=== PATIENT | female | born 1965 | race Caucasian/White ===

== ENCOUNTER → 2020-01-08 08:31 | Outpatient (CLI) | payer OTHER, BC, SELFPAY ==
--- NOTE | 2020-01-08 08:40 | CT_ITS ---
STUDY: CT SCAN HAND LEFT REASON FOR EXAM: Female, 54 years old. LEFT HAND CONTUSION, FALL, PAIN WRIST/PALM AREA RADIATION DOSAGE (If Supplied By Facility): CTDIvol = ( 24.58 ) mGy, DLP = ( 683.53 ) mGycm. Individualized dose optimization techniques were used for this CT.? TECHNIQUE: Multiple axial tomographic images were obtained without intravenous contrast administration. Coronal and sagittal reconstruction was obtained as well. COMPARISON: None. FINDINGS: There is evidence of a soft tissue swelling. The carpal bones are unremarkable. The distal portion of the radius and ulna are unremarkable as well. The metacarpal bones as well as the phalanges are unremarkable. CT/Extremity Upper without Contra IMPRESSION: Soft tissue swelling. Electronically Signed: Patrick Barragan, at 10:16 EDT , Service support ,
== END ==
PROVIDERS: PCP Internal Medicine; Referring Provider Family Medicine; Visit Provider Family Medicine
DX: S60.222A Contusion of left hand, initial encounter (principal)
CPT/HCPCS: 73200

== ENCOUNTER 2020-05-14 17:27 | Emergency (ER) | payer OTHER, SELFPAY ==
[2020-05-14 17:28] VITALS: BP 144/76; PULSE 86; RESP 19; TEMP 36.1; O2SAT 100; BMI 21.9
[2020-05-14 17:31] VITALS: BP 144/76; PULSE 86; RESP 19; TEMP 36.1; O2SAT 100
--- NOTE | 2020-05-14 17:41 | EKG12_ITS ---
Test Reason : Blood Pressure : / mmHG Vent. Rate : 073 BPM Atrial Rate : 073 BPM P-R Int : 166 ms QRS Dur : 078 ms QT Int : 388 ms P-R-T Axes : 073 061 067 degrees QTc Int : 427 ms Normal sinus rhythm Normal ECG Confirmed by TWAN MACIAS, VERENA ([id number]), commissioning editor OSMIN SANCHEZ ([id number]) on 05/18/2020 9:50:10 AM Referred By: MALIK Confirmed By:VERENA TRENT MD
--- NOTE | 2020-05-14 17:44 | ED.VIS.GEN ---
History of Present Illness Chief Complaint: Chest Pain Narrative: Patient has had Covid for over a week, she developed some epigastric/chest pain yesterday it improved with Motrin. She has no shortness of breath, there is no pleuritic component. There is no back pain or tearing sensation. There is no lower extremity edema or calf pain. She denies any fever or chills, her Covid symptoms which include myalgias and generalized illness are somewhat improving. Past Medical History - Allergies and Home Meds Allergies/Adverse Reactions: Allergies No Known Allergies Allergy (Verified 05/14/20 17:30) Primary Care Physician: Juarez Boland MD [Primary Care Provider] - 3-5 Days Past Medical History: None Smoking Status: Never smoker Review of Systems All systems negative except as indicated General: Denies: Fever Eyes: Reports: Visual changes - bilaterally Cardiovascular: Reports: Chest pain. Denies: Palpitations, Heart racing Respiratory: Denies: Dyspnea, Cough, Sputum Gastrointestinal: Reports: - - Upper epigastric pain she tells me it is more in the chest.. Denies: Nausea, Vomiting Genitourinary: Denies: Dysuria Musculoskeletal: Reports: Myalgias. Denies: Extremity Pain Skin: Denies: Rash Neurological: Denies: Headache, Weakness Psych: Denies: Depression Endocrine: Denies: Polyuria Hematologic: Denies: Easy bruising Allergy: Denies: Uticaria Physical Exam Vital Signs/Narrative: Vital Signs Temp Pulse Resp BP Pulse Ox 05/14/20 17:31 97 F L 86 19 H 144/76 H 100 05/14/20 17:28 97 F L 86 19 H 144/76 H 100 General: Well nourished, Well developed Head: Normocephalic, Atraumatic ENT: Moist mucous membranes, No rhinorrhea Neck: Supple Cardiovascular: Regular rate, Regular rhythm Respiratory: No distress, CTA bilaterally, - - There is tenderness over the xiphoid region of her chest I cannot reproduce it. Abdomen: Soft, - - She has no abdominal pain to palpation Back: Nontender, Normal Inspection. Negative for: CVA tenderness Extremities: Nontender, No edema. Negative for: Tenderness, Calf Tenderness Skin: Negative for: Normal color, No rash Neurological: Negative for: Normal Strength, Normal Sensation Diagnostic/Tx/Re-eval Chest X-Ray - ED: 1 View, Read by ED Physician, Read by Radiologist, - - Right lower lobe infiltrate present. Normal cardiac silhouette. Interpreted by emergency doctor - Rhythm Strip Rhythm Strip: Sinus Rhythm Rate: 73 Ectopy: None - EKG Initial EKG Interpretation: - - Normal sinus rhythm with a rate of 73. Normal IL and QTc intervals. No ischemic changes. Normal EKG otherwise Interpreted by emergency doctor - Medical Decision Making Patient has an unremarkable work-up other than an infiltrate, she has a normal white count and this infiltrate is likely consistent with her Covid diagnosis. No antibiotics are warranted at this time she has no fever chills or anything that would make me think this is a superimposed infection. She appears well she is oxygenating well and I believe she will do quite well outpatient I did warn her that if she gets any worsening of her symptoms she needs to get rechecked. I encouraged her to buy a pulse oximeter. ED Disposition - Plan for ED Patient: Disposition: Home or Assisted Living Diagnosis: Pneumonia due to COVID-19 virus Instructions: Coronavirus Disease 2019 (COVID-19): Caring for Yourself or Others Referrals: Juarez Boland MD [Primary Care Provider] - 3-5 Days
--- NOTE | 2020-05-14 17:48 | RAD_ITS ---
STUDY: X-RAY CHEST REASON FOR EXAM: Female, 54 years old. CHEST PAIN STARTING YESTERDAY. TESTED POSITIVE COVID ON MONDAY. TECHNIQUE: Single frontal view of the chest. COMPARISON: None. FINDINGS: Cardiac silhouette unremarkable. Pulmonary vascularity unremarkable. Aorta unremarkable. Minimal hazy right base airspace opacities. No pleural effusions. Nodular density at the left base most likely represents a nipple shadow can be further assessed with a repeat chest radiograph with nipple markers. Upper abdomen unremarkable. Osseous structures intact. No pneumothorax. RAD/Chest 1 View (Portable) IMPRESSION: Minimal right base patchy opacity may be consistent with acute pneumonia. Electronically Signed: Chong Paulson, at 18:23 EST Tel , Service support ,
[2020-05-14 18:08] LABS: Absolute Lymphocyte Count 1.43 X10^3/uL (0.83-4.51); Absolute Neutrophil Count 3.4 X10^3/uL (2.0-7.7); Basophil# 0.03 X10^3/uL; Basophil% 0.5 % (0-1); Eosinophil# 0.05 X10^3/uL; Eosinophils% 0.9 % (0-5); Hematocrit 39.2 % (37-47); Lymphocyte # 1.43 X10^3/ul (4.0); Mean Corp Hgb Conc 30.6 g/dL (32-36); Mean Corpuscular Hgb 25.1 pg (27.0-32.0); Mean Corpuscular Volume 81.8 fL (81-99); Mean Platelet Vol. 11.6 fl (6.2-12.0); Monocyte# 0.62 X10^3/uL; Monocyte% 11.3 % (0-10); NRBC Flagged by Analyzer 0 % (0-5); Neutrophil # 3.35 X10^3/uL (2.7-7.7); Neutrophil % 61.1 % (47-70); Platelet Count 293 K/mm3 (150-450); RBC Distribution Width SD 45.2 fl (35.1-43.9); Red Blood Count 4.79 M/mm3 (4.2-5.4); White Blood Count 5.5 K/mm3 (4.4-11.0)
[2020-05-14 18:41] LABS: ALB/GLOB Ratio 1.1 RATIO (0.9-2.4); AST(SGOT) 19 U/L (15-37); Alanine Aminotransfer ALT/SGPT 28 U/L (13-56); Albumin, Serum 3.9 g/dL (3.2-5.0); Alkaline Phosphatase 52 U/L (45-117); Anion Gap 3 (5-15); BUN 13 mg/dL (7-18); BUN/Creat Ratio 15.6 RATIO (10-20); Calcium,Total 8.7 mg/dL (8.5-10.1); Chloride 106 mmol/L (98-107); Creatinine, Serum 0.83 mg/dL (0.55-1.02); EST Glomerular Filtration Rate 75 mL/min (>60); Est Glom Filt Rate - Afr Amer 91 mL/min (>60); Estimated Creatinine Clearance 59.86 ml/min; Globulin 3.6 g/dL (2.2-4.2); Glucose 91 mg/dL (74-106); Lipase 212 U/L (73-393); Protein, Total 7.5 g/dL (6.4-8.2); Sodium Level 138 mmol/L (136-145)
[2020-05-14 19:01] VITALS: BP 135/76; PULSE 66; RESP 18; O2SAT 98
== END 2020-05-14 19:04 | disposition home or self-care (01) ==
PROVIDERS: Emergency Provider Emergency Medicine; PCP Internal Medicine
DX: U07.1 COVID-19 (principal); J12.82 Pneumonia due to coronavirus disease 2019
CPT/HCPCS: 71045; 80053; 83690; 84484; 85025; 93005; 99283; A4216

== ENCOUNTER 2020-07-07 11:45 | Emergency (ER) | payer OTHER, SELFPAY ==
[2020-07-07 11:45] VITALS: BP 144/78; PULSE 71; RESP 16; TEMP 36.4; O2SAT 98; BMI 23.8
--- NOTE | 2020-07-07 11:58 | EKG12_ITS ---
Test Reason : SYNCOPE Blood Pressure : / mmHG Vent. Rate : 069 BPM Atrial Rate : 069 BPM P-R Int : 186 ms QRS Dur : 098 ms QT Int : 414 ms P-R-T Axes : 059 060 064 degrees QTc Int : 443 ms Normal sinus rhythm Normal ECG When compared with ECG of 14-MAY-2020 17:35, No significant change was found Confirmed by ANNETTE MACIAS, MILENA ([id number]), production editor OSMIN SANCHEZ ([id number]) on 07/20/2020 11:50:11 A M Referred By: LETY Confirmed By:SU BRYANT MD
--- NOTE | 2020-07-07 12:08 | ED.VIS.GEN ---
History of Present Illness Chief Complaint: Syncope Informant: Patient Onset: Today Context: Sudden Onset Timing: Intermittent Quality: Passed out Location: At work Current Severity: - - Complains of cold sensation left upper extremity Maximum Severity: Severe Worsened by: Patient amelie from sitting position was walking and passed out. Relieved by: Time Associated Symptoms: Low blood pressure and low heart rate Narrative: A 55-year-old woman with history of GERD on Nexium who presents after syncopal episode. This occurred at work. She was sitting. She got up from a sitting position and and began walking. She passed out. She did feel her vision becoming black and lightheaded. She denied nausea. Plus minus warm sensation. She states when she awoke many people her standing over her. Person at scene told her that her blood pressure and heart rate were low. Patient is on no cardiac meds or antihypertensive medication. Her only medication is Nexium. She denies black or maroon stool the past 2448 hrs. She denies history of bleeding ulcer. She denies headache. She denies visual, ocular auditory symptoms. She denies trouble with speech or swallowing. She denies chest discomfort, shortness of breath or dyspnea on exertion. She denies abdominal or back pain. She denies extremity pain. She complains of this cold sensation that is greater in the left hand compared to the entire left upper extremity. It is not in a dermatomal distribution. She also complained of tingling in her face initially. Patient denies history of syncope. She denies history of cardiac disease, hypertension or diabetes. Prior similar symptoms: No Recent Illness/Hospitalization: No - Past Medical History (1) History of gastroesophageal reflux (GERD) Status: Acute Past Medical History - Allergies and Home Meds Allergies/Adverse Reactions: Allergies No Known Allergies Allergy (Verified 07/07/20 12:18) Primary Care Physician: Juarez Boland MD [Primary Care Provider] - Prior records reviewed: No Surgical History: noncontributory Lives: Spouse/ Significant Other Smoking Status: Never smoker Alcohol: Rare Drugs: None Review of Systems General: Denies: Chills, Fever, Sweats Eyes: Reports: Visual changes - bilaterally ENT: Denies: Bilateral ear pain, Rhinorrhea, Sore throat Cardiovascular: Denies: Chest pain, Palpitations, Heart racing Respiratory: Denies: Dyspnea, Cough, Dyspnea on exertion Gastrointestinal: Denies: Abdominal pain, Nausea, Vomiting, Diarrhea, Melena, Hematochezia Genitourinary: Denies: Dysuria, Hematuria, Frequency Musculoskeletal: Denies: Back pain, Extremity Pain Skin: Denies: Rash, Wounds Neurological: Reports: Parasthesia. Denies: Headache, Weakness, Numbness Hematologic: Denies: Easy bruising, Easy bleeding Allergy: Denies: Uticaria, Swelling of the mouth Physical Exam Vital Signs/Narrative: Vital Signs Temp Pulse Resp BP Pulse Ox 07/07/20 11:45 97.5 F L 71 16 144/78 H 98 Inital Vital Signs reviewed: Yes General: Well nourished, Well developed, No Acute Distress Head: Normocephalic, Atraumatic Eyes: Perrl, EOMI. Negative for: Pale conjunctiva, Scleral icterus ENT: Moist mucous membranes, No rhinorrhea Neck: Supple, Nontender Cardiovascular: Regular rate, Regular rhythm, No murmurs, Normal S1, Normal S2 Respiratory: No distress, CTA bilaterally, Chest nontender Abdomen: Soft, Nontender, Nondistended, Normal bowel sounds, No masses Back: Nontender, Normal Inspection Extremities: Nontender, No edema, - - There is no asymmetry, swelling, discoloration, leg vein distention, palpable cords or tenderness along the distribution of the deep venous system. DP and PT pulse are palpable and symmetric. Skin: Normal color, No rash Neurological: Alert, Oriented x3, Cranial nerves II-XII grossly intact, Normal Strength, Normal Sensation, Normal DTR - There is no clonus or Babinski sign. Cerebellar testing is normal. NIH is 0 Psychological: Normal affect, Normal Mood Diagnostic/Tx/Re-eval Laboratory Results 07/07/20 07/07/20 12:10 12:10 WBC 6.2 RBC 4.16 L Hgb 10.9 L Hct 35.8 L MCV 86.1 MCH 26.2 L MCHC 30.4 L RDW Std Deviation 53.1 H RDW Coeff of Andres 16.8 H Plt Count 280 MPV 11.0 Immature Gran % (Auto) 0.200 Neut % (Auto) 64.1 Lymph % (Auto) 26.3 [place] % (Auto) 7.0 Eos % (Auto) 1.9 Baso % (Auto) 0.5 Absolute Neuts (auto) 4.0 Absolute Lymphs (auto) 1.62 Nucleated RBC % 0 Sodium 139 Potassium 3.8 Chloride 107 Carbon Dioxide 28.0 Anion Gap 4 L BUN 13 Creatinine 0.73 Estim Creat Clear Calc 67.25 Est GFR (MDRD) Af Amer 106 Est GFR (MDRD) Non-Af 87 BUN/Creatinine Ratio 17.8 Glucose 115 H Calcium 8.9 CBC is remarkable for mild anemia with normal indices. Basic metabolic panel is normal and specifically BUN to creatinine ratio. - EKG Initial EKG Interpretation: Sinus Rhythm - Normal sinus rhythm with a ventricular rate of 69. AL interval is 186 ms. QS duration 98 ms. QT duration 414 ms. [place] is normal. The EKG is normal. - Medical Decision Making None comment regarding feeling cold loss of vision/tunneling with low blood pressure and low heart rate suspect vasovagal syncopal episode. Uncertain why patient complained of tingling. As I was dictating my note I was informed by her nurse that her tingling has resolved. Basic metabolic panel was obtained to assess for electrolytes and specifically sodium, calcium and potassium as possible cause of her tingling sensation. EKG to rule out ischemic changes. CBC to assess H&H since she has history of GERD. ED Disposition - Plan for ED Patient: Disposition: Home or Assisted Living Diagnosis: Vasovagal syncopes, Anemia, unspecified, Paresthesia of left upper extremity, Facial paresthesia Instructions: ED Fainting, Vagal Reaction, ED Paraesthesias Referrals: Juarez Boland MD [Primary Care Provider] - As Needed
[2020-07-07 12:26] LABS: Absolute Lymphocyte Count 1.62 X10^3/uL (0.83-4.51); Basophil# 0.03 X10^3/uL; Basophil% 0.5 % (0-1); Eosinophil# 0.12 X10^3/uL; Eosinophils% 1.9 % (0-5); Hematocrit 35.8 % (37-47); Hemoglobin 10.9 g/dL (12.0-15.0); Lymphocyte # 1.62 X10^3/ul (4.0); Lymphocyte % 26.3 % (19-41); Mean Corp Hgb Conc 30.4 g/dL (32-36); Mean Corpuscular Hgb 26.2 pg (27.0-32.0); Mean Corpuscular Volume 86.1 fL (81-99); Monocyte# 0.43 X10^3/uL; NRBC Flagged by Analyzer 0 % (0-5); Neutrophil # 3.96 X10^3/uL (2.7-7.7); Neutrophil % 64.1 % (47-70); Platelet Count 280 K/mm3 (150-450); RBC Distribution Width CV 16.8 % (11.6-14.6); RBC Distribution Width SD 53.1 fl (35.1-43.9); Red Blood Count 4.16 M/mm3 (4.2-5.4); White Blood Count 6.2 K/mm3 (4.4-11.0)
[2020-07-07 12:29] LABS: Anion Gap 4 (5-15); BUN 13 mg/dL (7-18); BUN/Creat Ratio 17.8 RATIO (10-20); Calcium,Total 8.9 mg/dL (8.5-10.1); Chloride 107 mmol/L (98-107); Creatinine, Serum 0.73 mg/dL (0.55-1.02); EST Glomerular Filtration Rate 87 mL/min (>60); Est Glom Filt Rate - Afr Amer 106 mL/min (>60); Estimated Creatinine Clearance 67.25 ml/min; Glucose 115 mg/dL (74-106); Potassium 3.8 mmol/L (3.5-5.1); Sodium Level 139 mmol/L (136-145)
[2020-07-07 12:56] VITALS: BP 129/74; PULSE 73; RESP 20; O2SAT 100
== END 2020-07-07 12:57 | disposition home or self-care (01) ==
PROVIDERS: Emergency Provider Emergency Medicine; PCP Internal Medicine
DX: R55 Syncope and collapse (principal); D64.9 Anemia, unspecified; R20.2 Paresthesia of skin; K21.9 Gastro-esophageal reflux disease without esophagitis
CPT/HCPCS: 80048; 85025; 93005; 99285; A4216

== ENCOUNTER → 2021-04-15 13:03 | Outpatient (CLI) | payer OTHER, SELFPAY ==
[2021-04-15 13:20] LABS: Absolute Lymphocyte Count 1.58 X10^3/uL (0.83-4.51); Absolute Neutrophil Count 3.2 X10^3/uL (2.0-7.7); Basophil# 0.05 X10^3/uL; Basophil% 0.9 % (0-1); Eosinophil# 0.47 X10^3/uL; Eosinophils% 8.1 % (0-5); Hematocrit 38.3 % (37-47); Hemoglobin 11.7 g/dL (12.0-15.0); Lymphocyte # 1.58 X10^3/ul (0.83-4.51); Lymphocyte % 27.2 % (19-41); Mean Corp Hgb Conc 30.5 g/dL (32-36); Mean Corpuscular Hgb 26.2 pg (27.0-32.0); Mean Corpuscular Volume 85.9 fL (81-99); Mean Platelet Vol. 11.2 fl (6.2-12.0); Monocyte# 0.52 X10^3/uL; NRBC Flagged by Analyzer 0 % (0-5); Neutrophil # 3.17 X10^3/uL (2.7-7.7); Neutrophil % 54.6 % (47-70); Platelet Count 401 K/mm3 (150-450); RBC Distribution Width CV 15.1 % (11.6-14.6); RBC Distribution Width SD 47.8 fl (35.1-43.9); Red Blood Count 4.46 M/mm3 (4.2-5.4); White Blood Count 5.8 K/mm3 (4.4-11.0)
[2021-04-15 13:36] LABS: Vitamin D,25 Hydroxy 18.4 ng/mL
[2021-04-15 13:40] LABS: ALB/GLOB Ratio 1.1 RATIO (0.9-2.4); AST(SGOT) 22 U/L (15-37); Alanine Aminotransfer ALT/SGPT 30 U/L (13-56); Albumin, Serum 4.2 g/dL (3.2-5.0); Alkaline Phosphatase 40 U/L (45-117); Anion Gap 4 (5-15); BUN 11 mg/dL (7-18); BUN/Creat Ratio 13.1 RATIO (10-20); Calcium,Total 9.7 mg/dL (8.5-10.1); Chloride 104 mmol/L (98-107); Cholesterol 191 mg/dL (200); Creatinine, Serum 0.84 mg/dL (0.55-1.02); EST Glomerular Filtration Rate 74 mL/min (>60); Est Glom Filt Rate - Afr Amer 90 mL/min (>60); Globulin 3.9 g/dL (2.2-4.2); Glucose 69 mg/dL (74-106); High Density Lipoprotein 93 mg/dL; Potassium 4.2 mmol/L (3.5-5.1); Protein, Total 8.1 g/dL (6.4-8.2); Sodium Level 139 mmol/L (136-145); T4 Free Direct 0.82 ng/dL (0.76-1.46); Thyroid Stim Hormone (TSH) 4.72 uIU/mL (0.358-3.74); Triglycerides 50 mg/dL; Very Low Density Lipoprotein 10 mg/dL (5-40)
== END ==
PROVIDERS: PCP Internal Medicine
DX: Z00.00 Encounter for general adult medical examination without abnormal findings (principal)
CPT/HCPCS: 80053; 80061; 82306; 84439; 84443; 85025

== ENCOUNTER 2023-05-18 13:30 | Outpatient (RCR) | payer BC, SELFPAY ==
--- NOTE | 2023-04-19 14:35 | HP.PTEVAL_ITS ---
Patient's Visit Information Visit Information Visit Information: MAXIME MONTGOMERY is a 57 year old F referred to Physical Therapy by SJ CORRALES with a diagnosis of PF itis. Date of Evaluation: 04/19/23 Physical Therapist: Dwaine Butterfield, SARAHT, OCS, CSCS Visit Plan Frequency: 3x /Week Duration: 3 Weeks Plan: 3x/week for 3 weeks to start for 1. pt to get vasyli orhtoics from web store and bring in for cut. 2. US nonthermal to B heels , STM to PF and gastroc, stretch PF and gastroc B. 3. strengthen ankles and gradual return to pickle ball when able. Subjective Subjective: PFitis on B R first then L. Started playing pickle ball about 3 weeks ago. Saw doctor and put on meds and tennis ball massage and ice. Brace also and they have helped 25%. Worse in am or worse when active. No problem with this in the past. Sleepoing is OK. Basic ADLs and activity are normal but uncomfortable, avoids pickleball and loves pickle ball. Works out on TM and stretching and can do this for an hour on the TM slowly. Pain B heel pain.: Pain Intensity (Out of 10): 0 Pain Intensity Range: 3 Comment: worse in am. Avoids aggravating activity Objective Objective: Walks into PT in boots I without antalgia or pain today. Transfers bed and chair I. Good balance. Tender to palpation in soft tissue at PF attachment calcaneus B feet moderately and mildly into PF body . tightness obvious in gastroc at 0 Df and soleus appears OK. strength ankles 4+ without pain. metatarsals and big toe moves wella dn contracts without pain. reflexes 2/3 patella and achilles Sensation LE WNL ot gross light touch. pes planus obvious in B feet L >R Balance/Special Test Scores Lower Extremity Functional Score: 56 Goals Goal 1:: Pt feel pain 90% better at 1/10 at worst Goal Time Frame: 4-6 Weeks Goal 2:: Walk in am without pain Goal Time Frame: 4-6 Weeks Goal 3:: Plan to return to pickleball Goal Time Frame: 4-6 Weeks Goal 4:: I appropriate management of condition Goal Time Frame: 4-6 Weeks Goal 5:: LEFS 66 Goal Time Frame: 4-6 Weeks Rehabilitation Potential Physical Therapy Diagnosis: heal pain limting comfort with function Rehabilitation Potential: Good Anticipated Interventions Patient/Client Instruction: Educate patient on: Condition and Plan of Care For the Purpose of:: To decrease pain, To increase ROM, To improve nutrient delivery to tissue, To improve muscle performance and motor function and To increase tolerance to activity/condition/position Therapeutic Exercise to Include: Strength training and Flexibilty training For the Purpose of:: To decrease pain, To increase ROM, To improve nutrient delivery to tissue, To improve muscle performance and motor function and To increase tolerance to activity/condition/position Manual Therapy Techniques to Include: Mobilization, Passive ROM and Soft tissue mobilization For the Purpose of:: To decrease pain, To decrease swelling/inflammation, To increase ROM, To improve nutrient delivery to tissue and To improve gait and locomotor functions Cryotherapy (ice pack, ice massage): Yes Ultrasound (thermal/non thermal): Yes For the Purpose of:: To decrease pain, To decrease swelling/inflammation, To increase ROM, To improve nutrient delivery to tissue and To improve muscle performance and motor function Text: Thank you for the opportunity to evaluate your patient. For Medicare and Medicare HMO plans, please review the plan of care and approve it. It will need to be FAXED BACK to us at [phone] for Medicare purposes. For Medicare only, by signing this I certify the plan of care. Please let me know if there are questions or concerns regarding this plan of care. Physician Signatur e: Date:
--- NOTE | 2023-05-15 13:50 | HP.PTREVAL ---
Re-Evaluation Intro: SJ CORRALES, It has been my pleasure to treat MAXIME MONTGOMERY over the last 10 visits for PF itis. Please see the progress note below for an update on the physical therapy plan of care! Subjective Subjective: Still can't pickleball. Got injection last ad is to take another month off of pickleball. No pain since that day. To doctor in a month. Doing HEP at home. Doing well. Wants to play pickle ball but doctor wants her to wait one month. Objective Objective/Function: Good AROM feet and ankles , symmetrical and painfree. Walking without antalgia today. No tenderness in B plantarfascia. Plan Plan Plan: call when orthotics in for fitting and then d/c. Balance/Gait/Functional tests Balance/Special Test Scores Lower Extremity Functional Score: 76 Goals Goals Goal 1:: Pt feel pain 90% better at 1/10 at worst Goal Time Frame: 4-6 Weeks Goal Progress: Goal Met Goal 2:: Walk in am without pain Goal Time Frame: 4-6 Weeks Goal Progress: Goal Met, 2 miles Goal 3:: Plan to return to pickleball Goal Time Frame: 4-6 Weeks Goal Progress: one month Goal 4:: I appropriate management of condition Goal Time Frame: 4-6 Weeks Goal Progress: Goal Met Goal 5:: LEFS 66 Goal Time Frame: 4-6 Weeks Goal Progress: Goal Met Anticipated Interventions Anticipated Interventions Patient/Client Instruction: Educate patient on: Condition and Plan of Care For the Purpose of:: To decrease pain, To increase ROM, To improve nutrient delivery to tissue, To improve muscle performance and motor function and To increase tolerance to activity/condition/position Therapeutic Exercise to Include: Strength training and Flexibilty training For the Purpose of:: To decrease pain, To increase ROM, To improve nutrient delivery to tissue, To improve muscle performance and motor function and To increase tolerance to activity/condition/position Manual Therapy Techniques to Include: Mobilization, Passive ROM and Soft tissue mobilization For the Purpose of:: To decrease pain, To decrease swelling/inflammation, To increase ROM, To improve nutrient delivery to tissue and To improve gait and locomotor functions Cryotherapy (ice pack, ice massage): Yes Ultrasound (thermal/non thermal): Yes For the Purpose of:: To decrease pain, To decrease swelling/inflammation, To increase ROM, To improve nutrient delivery to tissue and To improve muscle performance and motor function Re-Evaluation Ending Re-evaluation ending: Please do not hesitate to contact me at [phone] by phone or if you have questions or concerns regarding this new plan of care! Sincerely, Dwaine Butterfield, DPT, OCS, CSCS
--- NOTE | 2023-05-18 13:52 | HP.PTDCSUM_ITS ---
Discharge Summary D/C summary: It has been my pleasure to treat MAXIME MONTGOMERY referred by SJ CORRALES, with the diagnosis of PF itis for a total of 11 visit(s). Discharge Date: 05/18/23 Please see the following information for a summary of their discharge status. Subjective Subjective: Doing well and still no pain. Ready to get orhtoitcs and go. Pain B heel pain.: Pain Intensity (Out of 10): 1 Overall Improvement % Improvement: 90 Objective Objective/Function: Good fit and feel today and good understanding of orthotics Goals Goal 1:: Pt feel pain 90% better at 1/10 at worst Goal Progress: Goal Met Goal 2:: Walk in am without pain Goal Progress: Goal Met, 2 miles Goal 3:: Plan to return to Revolverleball Goal Progress: one month Goal 4:: I appropriate management of condition Goal Progress: Goal Met Goal 5:: LEFS 66 Goal Progress: Goal Met Plan Plan: No f/u needed. d/c D/C Information Discharge Comments: pt doing well and has orthotics. Id escribed the weaning process to orthotics and back to controlle dpickle ball movmements when painfree for over a weeka nd slowly d/c sentence: If there are questions or concerns regarding this patient's physical therapy, please feel free to call me at [phone]. Thank you for the referral of this patient. Sincerely, Dwaine Butterfield, DPT, OCS, CSCS Balance/Gait/Functional tests Balance/Special Test Scores Lower Extremity Functional Score: 76 Improvement % Improvement: 90
== END 2023-05-18 17:12 | disposition home or self-care (01) ==
LOC: PT 13:30
PROVIDERS: PCP Family Medicine
DX: M79.671 Pain in right foot (principal); M79.672 Pain in left foot; M72.2 Plantar fascial fibromatosis
CPT/HCPCS: 97035; 97110; 97140; 97161; 97164; 97760; 97763